=== PATIENT | male | born 1985 | race African-American/Black ===

== ENCOUNTER 2017-09-24 20:14 | Emergency (ER) | payer BC ==
--- NOTE | 2017-09-24 21:17 | ED Physician Chart ---
ED Chief Complaint/HPI - Patient Information Date Seen:: 09/24/17 Time Seen:: 21:07 Chief Complaint:: lt shoulder pain History of Present Illness:: 32 yr old male who missed some steps and fell on lt shoulder with pain and possible dislocation Allergies:: Allergies Allergy/AdvReac Type Severity Reaction Status Date / Time No Known Allergies Allergy Verified 09/24/17 20:37 Vitals:: Vital Signs - 8 hr 09/24/17 20:30 Temp 97.0 F HR 88 RR 18 BP 123/63 O2 Sat % 95 Historian:: Patient ED Review of Systems - Review of Systems General/Constitutional: No fever, No chills, No weight loss, No weakness, No diaphoresis, No edema, No loss of appetite Skin: No skin lesions, No rash, No bruising Head: No headache, No light-headedness Eyes: No loss of vision, No pain, No diplopia ENT: No earache, No nasal drainage, No sore throat, No tinnitus Neck: No neck pain, No swelling, No thyromegaly, No stiffness, No mass noted Cardio Vascular: No chest pain, No palpitations, No PND, No orthopnea, No edema Pulmonary: No SOB, No cough, No sputum, No wheezing GI: No nausea, No vomiting, No diarrhea, No pain, No melena, No hematochezia, No constipation, No hematemesis G/U: No dysuria, No frequency, No hematuria Musculoskeletal: Bone or joint pain Endocrine: No polyuria, No polydipsia Psychiatric: No prior psych history, No depression, No anxiety, No suicidal ideation Hematopoietic: No bruising, No lymphadenopathy Allergic/Immuno: No urticaria, No angioedema Neurological: No syncope, No focal symptoms, No weakness, No paresthesia, No headache, No seizure, No dizziness, No confusion, No vertigo ED Past Medical History - Past Medical History Past Medical History: No significant medical hx Family Medical History - Family Member Mother History Unknown: Yes ED Physical Exam - Physical Examination General/Constitutional: Awake, Well-developed, well-nourished, Alert, No distress, GCS 15, Non-toxic appearing, Ambulatory Head: Atraumatic Eyes: Lids, conjuctiva normal, PERRL, EOMI Skin: Nl inspection, No rash, No skin lesions, No ecchymosis, Well hydrated, No lymphadenopathy ENMT: External ears, nose nl, Nasal exam nl, Lips, teeth, gums nl Neck: Nontender, Full ROM w/o pain, No JVD, No nuchal rigidity, No bruit, No mass, No stridor Respiratory: Nl effort/Exclusion, Clear to Auscultation, No Wheeze/Rhonchi/Rales Cardio Vascular: RRR, No murmur, gallop, rubs, NL S1 S2 GI: No tenderness/rebounding/guarding, No organomegaly, No hernia, Normal BS's, Nondistended, No mass/bruits, No McBurney tenderness : No CVA tenderness Other Extremities comments:: tenderness to palpation lt ant shoulder and decreased rom Neuro/Psych: Alert/oriented, DTR's symmetric, Normal sensory exam, Normal motor strength, Judgement/insight normal, Mood normal, Normal gait, No focal deficits Misc: Normal back, No paraspinal tenderness ED Assessment - Assessment General Assessment: lt anterior shoulder dislocation s/p traction with reduction under conscious sedation after 4 mg morphine 4 mg versed post reduction xray showed nl placement - Procedures Procedures:: lt anterior shoulder dislocation txed with traction countertractio with hearing of pop that shoulder was in place post reduction xray showed shoulder head and was confirmed with post reduction xray with shoulder head back in place Informed Consent: Procedure/risk/benefits explained by MD: Yes ED Septic Shock - . Is Septic Shock (SBP<90, OR Lactate>4 mmol\L) present?: No - <6hrs of presentation: Vital Signs: Vital Signs - 8 hr 09/24/ 20:30 Temp 97.0 F HR 88 RR 18 BP 123/63 O2 Sat % 95
[2017-09-24] MEDS ORDERED: Morphine Sulfate 4 mg/mL 1mL Syr IV STA (21:52)
[2017-09-24] MEDS ORDERED: Midazolam 1mg/ml 2 ml vial IV STA (21:57)
[2017-09-24] MEDS ORDERED: Morphine Sulfate 4 mg/mL 1mL Syr ONE (21:59)
[2017-09-24] MEDS ORDERED: Midazolam 1mg/ml 2 ml vial IV ONE (22:05)
[2017-09-24] MEDS ORDERED: Morphine Sulfate 4 mg/mL 1mL Syr IVP STA (22:08)
--- NOTE | 2017-09-25 09:14 | Diagnostic Imaging Report ---
Left shoulder 3 views Indication: Trauma Comparison: none Findings: There is anterior/inferior dislocation of the humeral head in relation to the glenoid with small Hill-Sachs lesion noted. Mild surrounding soft tissue swelling is noted. Impression: Anterior/inferior dislocation with small Hill-Sachs lesion noted. In the setting of trauma, if clinical symptoms persist and there is continued concern for an occult fracture, follow up exams in 5-7 days is suggested.
--- NOTE | 2017-09-25 09:14 | Diagnostic Imaging Report ---
Left shoulder 2 views Indication: Dislocation, status post reduction Comparison: Left shoulder x-rays the same day Findings: There has been interval reduction of the left shoulder. Hill-Sachs lesion is noted. Mild surrounding soft tissue swelling is noted. Impression: Interval left shoulder joint reduction with anatomical alignment. A Hill-Sachs lesion is noted. In the setting of trauma, if clinical symptoms persist and there is continued concern for an occult fracture, follow up exams in 5-7 days is suggested.
== END 2017-09-25 00:19 | disposition home or self-care (01) ==
LOC: ER 20:14
DX: S43.085A Other dislocation of left shoulder joint, initial encounter (principal); W10.9XXA Fall (on) (from) unspecified stairs and steps, initial encounter; Y93.89 Activity, other specified; Y92.89 Other specified places as the place of occurrence of the external cause; Y99.8 Other external cause status
CPT/HCPCS: 99284; 96374; 23650; 73030 ×2; J2250; J7030; Z7502

== ENCOUNTER 2017-09-30 02:06 | Emergency (ER) | payer BC ==
--- NOTE | 2017-09-30 02:13 | ED Physician Chart ---
ED Chief Complaint/HPI - Patient Information Date Seen:: 09/30/17 Time Seen:: 02:09 Chief Complaint:: lt shoulder dislocation History of Present Illness:: 32 yr old male with lt anterior dislocation recurrent girl friend states oh he only tturned and this happened Allergies:: Allergies Allergy/AdvReac Type Severity Reaction Status Date / Time No Known Allergies Allergy Verified 09/24/17 20:37 ED Review of Systems - Review of Systems Musculoskeletal: Other (lt shoulder dislocation) Family Medical History - Family Member Mother History Unknown: Yes ED Septic Shock - . Is Septic Shock (SBP<90, OR Lactate>4 mmol\L) present?: No ED Reassessment (Disposition) - Reassessment Reassessment Condition:: Improved - Diagnosis Diagnosis:: lt shoulder dislocation - Aftercare/Follow up Instructions Aftercare/Follow-Up Instructions:: Counseled pt regarding lab results/diagnosis & need follow up - Patient Disposition Discharge/Transfer:: Home
== END 2017-09-30 02:55 | disposition home or self-care (01) ==
LOC: ER 02:06
DX: S43.005A Unspecified dislocation of left shoulder joint, initial encounter (principal); X58.XXXA Exposure to other specified factors, initial encounter; Y93.89 Activity, other specified; Y92.89 Other specified places as the place of occurrence of the external cause; Y99.8 Other external cause status
CPT/HCPCS: Z7502